=== PATIENT | female | born 1990 | race Caucasian/White ===

== ENCOUNTER 2020-03-23 23:50 | Emergency (ER) | payer OTHER ==
[2020-03-24 00:25] LABS: #Basophils 0.1 thou/uL (0.0-0.2); #Eosinphils 0.2 thou/uL (0.0-0.7); #Lymphocytes 1.9 thou/uL (1.20-3.40); #Monocytes 0.8 thou/uL (0.11-0.59); #Neutrophils 8.2 thou/uL (1.40-6.50); %Basophils 0.6 % (0.0-1.0); %Lymphocytes 16.8 % (21.0-51.0); %Neutrophils 73.6 % (42.0-75.0); BHCG - Serum Negative (NEGATIVE); Hemoglobin 11.7 g/dL (12.0-16.0); Mean Corpuscular HGB CONC 30.8 g/dL (32.0-36.0); Mean Corpuscular Volume 81.3 fL (78.0-98.0); Mean Platelet Volume 7.1 fL (7.4-10.4); Platelet Count 252 thou/uL (130-400); Pregs Control Bar Appear? YES (CONTROL BAR); RBC Distribution Width 14.3 % (11.5-14.5); Red Blood Cell (RBC) Count 4.66 mill/uL (4.20-5.40); White Blood Cell (WBC) Count 11.1 thou/uL (4.8-10.8)
[2020-03-24 00:32] LABS: Anion Gap 13 mmol/L (10-20); BUN (Urea Nitrogen) 19 mg/dL (7.0-18.7); Calc. Creatinine Clearance 0 mL/min (70-130); Calcium 9.3 mg/dL (7.8-10.44); Carbon Dioxide 23 mmol/L (22-29); Chloride 108 mmol/L (98-107); Estimated GFR-MDRD 75; Glucose 187 mg/dL (70-105); Sodium 140 mmol/L (136-145)
== END 2020-03-24 01:15 | disposition home or self-care (01) ==
LOC: NAV ERS 23:50
DX: R00.2 Palpitations (principal); F41.9 Anxiety disorder, unspecified; R42 Dizziness and giddiness; Z87.891 Personal history of nicotine dependence
CPT/HCPCS: 80048; 84484; 84703; 85025

== ENCOUNTER 2023-05-12 19:52 | Emergency (ER) | payer BC ==
[2023-05-12] MEDS ORDERED: Lidocaine 1% (PF) 30 ML VIAL ONE (20:35)
[2023-05-12] MEDS ORDERED: Boostrix 0.5 ML (Tdap) VIAL (>/=7 yrs of age) ONE (20:37)
[2023-05-12] MEDS ORDERED: Bacitracin 1 PK ONE (20:53)
== END 2023-05-12 21:00 | disposition home or self-care (01) ==
LOC: NAV ERS 19:52
DX: S61.012A Laceration without foreign body of left thumb without damage to nail, initial encounter (principal); Z87.891 Personal history of nicotine dependence; W26.0XXA Contact with knife, initial encounter
CPT/HCPCS: 12001; 90471; 90715; J2001